=== PATIENT | female | born 1995 | race Caucasian/White ===

== ENCOUNTER 2019-09-30 22:32 | Observation (INO) | payer MEDICAID, SELFPAY ==
[2019-09-30 19:50] VITALS: BP 108/65; PULSE 75; RESP 18; TEMP 36.7
[2019-09-30 20:05] VITALS: BMI 20.9
[2019-09-30 20:59] VITALS: BP 0/0
[2019-09-30 21:00] VITALS: BP 103/58; PULSE 63
[2019-09-30 22:02] LABS: Glucose Urine UA Norm (Normal); Protein Urine 2+ (Negative); Urine Color Yellow (Yellow); pH Urine 6.5 (5-7)
[2019-09-30 22:03] LABS: Bilirubin Urine Neg (NEGATIVE); Blood Urine 2+ (Negative); Ketones Urine Negative (Negative); Leukocyte Esterase Urine 1+ (Negative); Nitrate Urine Negative (Negative); Urobilinogen Urine Norm (Negative)
[2019-09-30 22:04] LABS: Add Urine Culture? No; Bacteria Urine 2+; Squamous Epithelial Cell Urine 15-25 (0-5); WBC Urine 25-40 /hpf (0-5)
[2019-09-30 22:48] VITALS: RESP 18; TEMP 36.6
[2019-09-30 23:03] VITALS: BP 108/67; PULSE 66
[2019-09-30] MEDS: amoxicillin 500 mg Capsule 1000 MG PO (23:10)
[2019-09-30] MEDS: sodium chloride 0.9% 1,000 ML 100 ML IV (23:43)
[2019-10-01] VITALS (13 sets, daily range): BP systolic 0–104; BP diastolic 0–70; PULSE 71–102; RESP 16; TEMP 36.7
--- NOTE | 2019-10-01 07:20 | PM.SDS ---
Short Stay Summary Providers Date of Admit/Discharge: 10/01/19 Attending Provider: Venkata Knight MD Chief Complaint: OB TRIAGE HPI History of Present Illness Ara Guzman is a 23 year old female who began having contractions yesterday afternoon. They are moderately severe and she came to [facility] labor delivery for evaluation. Upon evaluation she was jennifer every 1-1/2 to 2 minutes and was 1 cm dilated but still very thick and high. Her urine was checked and she was found to have a urinary tract infection. After observation for a while she was found to continue to be jennifer with significant discomfort. As she lives more than an hour away a decision was made to remain in the hospital overnight for observation stay. Review of Systems General: Reports: 10 or more systems reviewed and unremarkable except in HPI and below : Reports: urinary frequency, absence of menstruation (She is .) and pelvic pain; Denies: difficulty urinating or vaginal odor Musc: Reports: back pain (Low back pain.) Home Meds/Allergies Home Medications and Allergies Home Medications Medication Instructions Recorded Confirmed Type tab PO DAILY 09/30/19 History Allergies Allergy/AdvReac Type Severity Reaction Status Date / Time erythromycin base Allergy ALGY-Rash Verified 09/30/19 21:08 PFSH Acute PFSH: Statuses (acute, chronic, etc) shown below reflect problem list status as previously entered and may not be historically accurate Family History Grandfather Family history of heart attack Grandmother Family history of heart attack Social History (Updated 09/30/19 @ 21:35 by Uma Godwin RN) Smoking and tobacco status: never smoked Second hand smoke exposure: No Smoking risk assessment/counseling performed?: No Alcohol intake: never Desire information about alcohol rehabilitation?: No Counseling given: No Substance/Drug Use: never Desire information about substance/drug rehabilitation?: No Counseling given: No Adopted: No Caregiver/support person: Yes Lives independently: Yes Household members: spouse and children Housing: House Marital status: Single Number of children: 1 Female Reporductive History: : 2 Vitals/I&O/Wt Last Vital Signs Temp 98.0 F 10/01/19 00:50 Pulse 80 10/01/19 06:59 Resp 16 10/01/19 00:50 BP 104/70 10/01/19 06:59 Weight last 48 hrs Weight 57.153 kg Physical Exam Const: COMMON NORMALS: no apparent distress and oriented x3 Chest: COMMONS NORMALS: inspection of chest normal Resp: COMMON NORMALS: normal respiratory effort GI: COMMON NORMALS: normal to inspection, nondistended, normoactive bowel sounds and soft to palpation; negative for non-tender (Mild suprapubic tenderness.) PALPATION: Yes soft : COMMON NORMALS: Yes no CVA tenderness BLADDER/KIDNEY EXAM: Yes no CVA tenderness MANUAL OB EXAM: dilated 1 cm, effaced 25% and station high (Approximately -3) Back/Pelvis: COMMON NORMALS: no CVA tenderness Neuro: COMMON NORMALS: oriented x3 and no sensory deficits noted Psych: COMMON NORMALS: mental status grossly normal Hospital Course Hospital Course: Patient has done well overnight. With intravenous fluids and 1 dose of amoxicillin the contractions have spaced out. She has made no cervical change and is felt to be stable to be discharged home. Diagnoses at Discharge Discharge Diagnosis (1) Urinary tract infection affecting care of mother in third trimester, antepartum: Status: Acute (2) uterine contractions: Status: Acute Problem details: Improved with hydration. Discharge Plan Discharge Patient Disposition: Home, Self-Care Condition: Stable Prescriptions: Continued 28-800 mg-mcg Tablet PO DAILY RF: 0 Discharge Orders: Discharge Order (Routine); Ordered 10/01/19 Ordered By: Venkata Knight Discharge Diet: Usual diet Discharge Activity: Resume usual activity Patient Instructions: Vitamins (By mouth), Amoxicillin (By mouth), OB Undelivered Discharge Attestations Medical Necessity Statement*: Patient lives more than an hour away and was jennifer regularly. She required observation stay overnight to ensure that she was not in active labor at 36-1/2 weeks gestation. As her contractions have spaced out she is felt to be stable to be discharged home this morning. Time Spent in Patient Care*: greater than 30 min Quality Metrics Clinical Quality Measures: During this hospital stay, did patient experience: None Coding Level of Care Code Acute Deputy General Counsel for Stacie Villarreal Diagnoses Urinary tract infection affecting care of mother in third trimester, antepartum O23.43 uterine contractions O47.9
== END 2019-10-01 07:35 | disposition home or self-care (01) ==
LOC: OBGYN 10-01 07:07 → OPOB 10-03 16:35
PROVIDERS: Admitting Provider Family Medicine; PCP Family Medicine; Visit Provider Family Medicine
DX: O23.43 Unspecified infection of urinary tract in pregnancy, third trimester (principal); O47.9 False labor, unspecified; Z3A.36 36 weeks gestation of pregnancy
CPT/HCPCS: 12345; 59025; 81001; 99211; G0378; J7030

== ENCOUNTER 2019-10-15 15:20 | Inpatient (IN) | payer MEDICAID, SELFPAY ==
[2019-10-15] VITALS (60 sets, daily range): BP systolic 0–128; BP diastolic 0–76; PULSE 67–96; RESP 16–18; TEMP 36.4–37.1; O2SAT 94–100; BMI 21.8
[2019-10-15] MEDS: miSOPROStol 100 mcg tablet 25 MCG VAGINAL (15:59)
[2019-10-15 16:29] LABS: Basophils % 0.4 %; Eosinophils # 0.1 10^3/uL (0.0-0.8); Eosinophils % 0.5 %; Hematocrit 35.7 % (37.0-47.0); Hemoglobin 11.3 g/dL (11.5-15.3); Lymphocytes # 1.7 10^3/uL (0.8-4.8); Lymphocytes % 15.9 %; Mean Corpuscular HGB Conc 31.7 g/dL (30.0-36.0); Mean Corpuscular Hemoglobin 28.3 pg (28.0-34.0); Mean Corpuscular Volume 89.5 fL (81-99); Mean Platelet Volume 10.5 fL (7.4-10.4); Monocytes # 0.5 10^3/uL (0.2-0.9); Monocytes % 5.1 %; Neutrophils # 8.1 10^3/uL (1.8-7.7); Neutrophils % 77.4 %; Nucleated Red Blood Cells % 0 %; Platelet Count 318 10^3/cmm (130-400); Red Blood Count 3.99 10^6/uL (4.1-5.3); Red Cell Distribution Width 12.5 % (12.1-15.1); White Blood Count 10.5 10^3/uL (4.0-10.0)
--- NOTE | 2019-10-15 17:55 | PC.NURSE ---
PT UP TO WALK FOR 1 HOUR INSTRUCTIONS GIVEN. PT VOICES UNDERSTANDS.
[2019-10-15] MEDS: dextrose 5%-lactated ringers 1,000 ML 125 ML IV (18:39)
[2019-10-15] MEDS: lactated ringers 1,000 ML 999 ML IV (18:58)
--- NOTE | 2019-10-15 19:27 | ANES.PREANES ---
Pre-Anesthetic Assessment Pre-Anesthetic Assessment: Height/Weight: Height 1.65 m Weight 59.552 kg Temp Pulse Resp BP Pulse Ox 97.6 F 75 18 104/63 94 10/15/19 15:33 10/15/19 19:25 10/15/19 15:33 10/15/19 19:25 10/15/19 19:11 Preop Diagnosis: labor pain Proposed Procedure: labor epidural Familial anesthetic complications: denies Was Beta Speedy taken within 24 hours: N/A Social: Social History: No tobacco Exam: Pre-Anes Outpt Exam: alert, oriented x 3 and clear to auscultation bilaterally Airway: Submandibular: WNL Cervical ROM: WNL MP: 1 History/ROS: No significant history except as noted Pulmonary: Pulmonary: None reported CV/HEM: CV/HEM: None reported : : None reported Hepatic: Hepatic: None reported GI: GI: GERD Metabolic: Metabolic: None reported Musc/skel: Musc/skel: None reported Neuropsych: Neuropsych: None reported Anesthetic Plan: ASA status: II Anesthesia: Regional (specify below) Other: epidural Risk of > 500 ml blood loss (7ml/kg in children): No Meds/Allergies Current Medications: Current Medications Generic Name Dose Route Start Last Admin Trade Name Freq PRN Reason Stop Dose Admin Dextrose/Lactated Ringer's 1,000 mls @ 125 m ls/hr 10/15/19 15:45 10/15/19 18:39 Dextrose 5%-Lact ated Ringers IV 125 mls/hr .Q8H KENDY Administration Lactated Ringer's 1,000 mls @ 999 m ls/hr 10/15/19 18:37 10/15/19 18:58 Lactated Ringers IV 999 mls/hr .Q1H1M PRN Administration ANESTHESIA Ropivacaine 200 mg in 100 mls @ 6 mls/hr 10/15/19 18:45 10/15/19 19:00 Naropin Premix EPIDURAL 6 mls/hr .[id number] KENDY Administration Misoprostol 25 mcg 10/15/19 16:00 10/15/19 15:59 Cytotec VAGINAL 10/17/19 16:01 25 mcg ONCE KENDY Administration PFSH Anesthesia PFSH: Social History (Updated 09/30/19 @ 21:35 by Uma Godwin RN) Smoking and tobacco status: never smoked Second hand smoke exposure: No Smoking risk assessment/counseling performed?: No Alcohol intake: never Desire information about alcohol rehabilitation?: No Counseling given: No Desire information about substance/drug rehabilitation?: No Counseling given: No Adopted: No Caregiver/support person: Yes Lives independently: Yes Household members: spouse and children Housing: House Marital status: Single Number of children: 1 Female Reproductive History: : 2 Data Anesthesia CBC & Chem 7: 10/15/19 16:05 Other Labs: Laboratory Results - last 48 hr 10/15/19 16:05 WBC 10.5 H RBC 3.99 L Hgb 11.3 L Hct 35.7 L MCV 89.5 MCH 28.3 MCHC 31.7 RDW 12.5 Plt Count 318 MPV 10.5 H Neut % (Auto) 77.4 Lymph % (Auto) 15.9 [place] % (Auto) 5.1 Eos % (Auto) 0.5 Baso % (Auto) 0.4 Neut # (Auto) 8.1 H Lymph # (Auto) 1.7 [place] # (Auto) 0.5 Eos # (Auto) 0.1 Baso # (Auto) 0.0 Nucleated RBC % (auto) 0 Nucleated RBCs # 0.0 Cardiac Studies: No Data to Display
--- NOTE | 2019-10-15 19:30 | ANES.PROC ---
Anesthesia Procedures Procedure/Date: 10/15/19 Epidural: Time Out Performed: Yes Consents Signed: Procedure Consent Consent: requested by attending/covering physician, from patient, risks and benefits reviewed and patient agrees to proceed Lumbar Level: L3-L4 Epidural position: sitting Epidural procedure: sterile prep of area, 1% lidocaine to numb the area (3 cc skin wheel), 18 g needle, negative for paresthesia passed, neg for paresthesia, test dose given (no adverse response), 0.2% Ropivacaine bolus ml, placed PCEA, no systemic response, sterile dressing applied and 0.2% Ropiavacaine @ mls/hr (13 mls/hr) Additional Comments: patient states pain with contractions improved. VSS see OBIX system
[2019-10-15] MEDS: oxytocin 30 UNIT/500 ML BAG 600 UNIT IV (23:05)
--- NOTE | 2019-10-15 23:25 | PM.DELIVERY ---
 Delivery Note: Date of delivery: 10/17/19 Pre-delivery diagnoses: Term . Mom admitted for misoprostel cervical ripening for induction purposes. Post-delivery diagnoses: Status post spontaneous vaginal delivery. Procedure: Spontaneous vaginal delivery with epidural anesthesia. Anesthesia: epidural Delivering Physician: Eugene Estimated blood loss (mL): 113 Pre-Delivery Course: This patient was followed by this physician throughout her entire course. There were no major problems throughout her course. Maternal blood type was A+ with antibody screen negative. Hepatitis B, hepatitis C, RPR and HIV were negative. Rubella was immune and group B strep was negative. The patient was seen on the day of delivery in the office. At that time she was approximately 2 to 3 cm dilated and very uncomfortable. As bad weather was coming on and the patient and spouse lived several miles away a decision was made to admit the patient to the hospital and proceed with cervical ripening. Delivery: This 23-year-old 2 now para 2 female patient was given misoprostol 25 mcg x 1 dose and very shortly after that went into active labor. She underwent artificial rupture membranes at around 6:30 PM with a large amount of clear fluid obtained. The patient was given epidural anesthesia shortly after that and dilated to complete cervical dilatation. She was allowed to labor down and began pushing and was able to deliver by spontaneous vaginal livery healthy, viable female infant at 2303. The mouth and nose were suctioned with bulb syringe at the perineum. The infant was then completely delivered. There was no nuchal cord and the cord did have 3 blood vessels. Upon delivery and suctioning the was placed on mother's abdomen where after approximately 1 minute the umbilical cord was clamped and was cut by the 's father. The infant required further suctioning and was in the eventually brought to the warmer where approximately 10 mL of clear fluid was deleed from the . did cried lustily at with Apgars of 8 and 9 at 1 and 5 minutes respectively. The weighed 7 pounds 0 ounces. The placenta delivered spontaneously at 2305 and appeared to be intact. The patient is not bleeding heavily and sweep of the vaginal vault did not find any clots or active bleeding. There was no episiotomy and no lacerations. Post-Delivery Status: Patient appears to be doing very well and will be followed for routine postdelivery course. A&P Assessment and plan (1) Normal spontaneous vaginal delivery: Routine care. We will adjust orders as necessary. Status: Acute Code(s): O80 - Encounter for full-term uncomplicated delivery Coding Level of Care Code Acute Telecommunications Professional for Chg Fwd Diagnoses Normal spontaneous vaginal delivery O80
[2019-10-16] VITALS (15 sets, daily range): BP systolic 93–113; BP diastolic 54–69; PULSE 65–100; RESP 15–17; TEMP 36.6–36.9; O2SAT 97–99
--- NOTE | 2019-10-16 07:20 | P.PN_ITS ---
STRATEGIC ACCOUNT MANAGER Subjective Subjective: Interval history: Patient has done well overnight with just mild lochia and no significant cramps. She is ambulating well and tolerating a regular diet. Labor: Station: +2 Amniotic Membrane Status: Leaking Monitor Mode: External Contraction Pattern: Regular Status: Category l Vitals/I&O/Wt Last Vital Signs Temp 98.2 F 10/16/19 04:00 Pulse 81 10/16/19 05:00 Resp 15 10/16/19 05:00 BP 99/58 10/16/19 05:00 Pulse Ox 98 10/16/19 05:00 10/15/19 10/16/19 10/16/19 22:59 06:59 14:59 Output Total 300 / 300 100 / 400 Balance -300 / -300 -100 / -400 Weight last 48 hrs Weight 59.552 kg Physical Exam Const: COMMON NORMALS: no apparent distress, average body habitus, oriented x3 and well nourished GENERAL APPEARANCE: cooperative and comfortable NUTRITIONAL APPEARANCE: thin ORIENTATION/CONSCIOUSNESS: Yes awake Chest: CHEST: Yes symmetrical chest wall rise Resp: COMMON NORMALS: normal respiratory effort, no use of accessory muscles and clear to auscultation bilaterally AUSCULTATION: clear to auscultation bilaterally Cardio: COMMON NORMALS: regular rate, regular rhythm and no murmurs RATE: regular rate RHYTHM: regular rhythm GI: COMMON NORMALS: normal to inspection, nondistended, normoactive bowel sounds, soft to palpation and non-tender (Fundus is firm.) PALPATION: Yes soft Extremity: GENERAL: Yes normal exam except as noted Neuro: COMMON NORMALS: oriented x3, CN's II-XII intact bilaterally and no focal motor deficits Psych: COMMON NORMALS: mental status grossly normal Urinary Catheter Management^: Milligan: Cath Placed During This Visit: no Data : 10/16/19 11:19 A&P Assessment and plan (1) Normal spontaneous vaginal delivery: We will continue routine care. Plan probable discharge in the morning. Status: Acute Code(s): O80 - Encounter for full-term uncomplicated delivery Attestations Medical Necessity Statement*: Patient delivered late the night prior to this dictation and requires 1 more midnight hospital stay for routine care. Coding Level of Care Code Acute Petroleum Engineering Teacher for [facility] Fwjoseluis Exam Problem Focused Diagnoses Normal spontaneous vaginal delivery O80
[2019-10-16] MEDS: docusate sodium 100 mg Capsule PO (10:10)
[2019-10-16] MEDS: prenatal vitamin Capsule 1 CAP PO (10:10)
[2019-10-16 11:25] LABS: Hematocrit 33.4 % (37.0-47.0); Hemoglobin 10.5 g/dL (11.5-15.3); Mean Corpuscular HGB Conc 31.4 g/dL (30.0-36.0); Mean Corpuscular Hemoglobin 27.1 pg (28.0-34.0); Mean Corpuscular Volume 86.3 fL (81-99); Mean Platelet Volume 10.3 fL (7.4-10.4); Platelet Count 267 10^3/cmm (130-400); Red Blood Count 3.87 10^6/uL (4.1-5.3); Red Cell Distribution Width 12.5 % (12.1-15.1)
--- NOTE | 2019-10-17 08:42 | P.DS_ITS ---
Discharge Providers CONFIGURATION TECHNICIAN Date of Admission: 10/15/19 15:20 Date of Discharge: 10/17/19 Attending Provider at Admission: Venkata Knight MD Attending Provider at Discharge: Venkata Knight MD Primary Care Provider: Venkata Knight MD Diagnoses at Discharge Discharge Diagnosis (1) Normal spontaneous vaginal delivery: Status: Acute Problem details: Patient was admitted for cervical ripening and induction for term and history of rapid labor. Reason for Visit Reason for Visit: Reason For Visit: INDUCTION Information Peripartum Data: Delivery Method: Vaginal Episiotomy description: None Physical Exam Narrative: EXAM NARRATIVE: Patient has done well postdelivery. She has had just mild lochia with no significant cramps or clots. She is feeding the infant with formula. She is ambulating well and tolerating regular diet and is felt to be stable for discharge home. Const: COMMON NORMALS: no apparent distress and healthy appearing Chest: COMMONS NORMALS: inspection of chest normal Resp: COMMON NORMALS: normal respiratory effort, no retractions, no use of accessory muscles and clear to auscultation bilaterally AUSCULTATION: clear to auscultation bilaterally Cardio: COMMON NORMALS: regular rate and regular rhythm RATE: regular rate RHYTHM: regular rhythm GI: COMMON NORMALS: normal to inspection, nondistended, normoactive bowel sounds, soft to palpation (Fundus is firm.) and non-tender PALPATION: Yes soft (Fundus is firm.) Extremity: COMMON NORMALS: normal to inspection, full ROM and no pedal edema Urinary Catheter Management^: Milligan: Cath Placed During This Visit: no Discharge Data Data Completed and Pending: Labs from last 24 hours 10/16/19 11:19 WBC 12.0 H RBC 3.87 L Hgb 10.5 L Hct 33.4 L MCV 86.3 MCH 27.1 L MCHC 31.4 RDW 12.5 Plt Count 267 MPV 10.3 Vitals: Last Vital Signs Temp 97.9 F 10/16/19 10:13 Pulse 72 10/16/19 13:22 Resp 16 10/16/19 13:22 BP 109/64 10/16/19 13:22 Pulse Ox 97 10/16/19 10:13 Discharge Plan Discharge Patient Disposition: Home, Self-Care Condition: Stable Prescriptions: New docusate sodium 100 mg Capsule 100 mg PO BID Qty: 60 RF: 1 ibuprofen 800 mg Tablet 800 mg PO TID Qty: 90 RF: 2 Continued 28-800 mg-mcg Tablet 1 tab PO DAILY RF: 0 Discharge Orders: Discharge Order (Routine); Ordered 10/17/19 Ordered By: Venkata Knight Referrals: Venkata Knight MD [Primary Care Provider] - Discharge Diet: Usual diet Discharge Activity: Resume usual activity Discharge Attestations CONFIGURATION TECHNICIAN Time Spent in Discharge Care*: less than 30 min Specific Discharge Activities: Specific discharge activities: educating patient, documenting/other paperwork and evaluating patient/reviewing data Status at Discharge: Cognitive status at discharge: cognitively intact , Behavioral status at discharge: cooperative and independent in ADL's , Functional status at discharge: independent ambulation Overall status at discharge: patient is back to baseline Coding Level of Care Code Established Pt Acute Rabies Inspector for Chg Fwd Patient Type Established Exam Problem Focused Diagnoses Normal spontaneous vaginal delivery O80
[2019-10-17] MEDS: docusate sodium 100 mg Capsule PO (09:17)
[2019-10-17] MEDS: prenatal vitamin Capsule 1 CAP PO (09:17)
[2019-10-17 10:03] VITALS: BP 101/62; PULSE 74; RESP 18; TEMP 36.7; O2SAT 99
[2019-10-17 10:04] VITALS: BP 101/62; PULSE 74; RESP 18; TEMP 36.7; O2SAT 99
[2019-10-17 10:20] VITALS: BP 101/62; PULSE 74; RESP 18; TEMP 36.7; O2SAT 99
== END 2019-10-17 10:32 | disposition home or self-care (01) | DRG 807 ==
PROVIDERS: Admitting Provider Family Medicine; PCP Family Medicine; Visit Provider Family Medicine
DX: O80 Encounter for full-term uncomplicated delivery (principal); Z37.0 Single live birth; Z3A.40 40 weeks gestation of pregnancy
CPT/HCPCS: 12345; 36415; 51702; 59025; 59409; 85025; 85027; 99211; J2795

== ENCOUNTER 2021-04-30 16:37 | Inpatient (IN) | payer MEDICAID, SELFPAY ==
[2021-04-30] VITALS (55 sets, daily range): BP systolic 89–133; BP diastolic 47–81; PULSE 68–182; RESP 16–18; TEMP 36.9–37.3; O2SAT 82–100; BMI 23.0
[2021-04-30] MEDS: lactated ringers 1,000 ML 999 ML IV ×2 (16:15→17:41)
[2021-04-30 16:29] LABS: Basophils # 0.1 10^3/uL (0.0-0.1); Basophils % 0.5 %; Eosinophils % 0.3 %; Hematocrit 31.4 % (37.0-47.0); Hemoglobin 9.8 g/dL (11.5-15.3); Lymphocytes # 1.5 10^3/uL (0.8-4.8); Lymphocytes % 11.2 %; Mean Corpuscular HGB Conc 31.2 g/dL (30.0-36.0); Mean Corpuscular Hemoglobin 26.1 pg (28.0-34.0); Mean Corpuscular Volume 83.7 fl (81-99); Mean Platelet Volume 11.1 fL (7.4-10.4); Monocytes # 1.1 10^3/uL (0.2-0.9); Monocytes % 7.9 %; Neutrophils # 10.68 10^3/uL (1.8-7.7); Neutrophils % 79.4 %; Nucleated Red Blood Cells % 0 %; Platelet Count 266 10^3/cmm (130-400); Red Blood Count 3.75 10^6/uL (4.1-5.3); Red Cell Distribution Width 13.9 % (12.1-15.1); White Blood Count 13.5 10^3/uL (4.0-10.0)
--- NOTE | 2021-04-30 17:40 | PM.OPHPUD ---
Labor & Delivery H&P Update Date of Procedure: April 30, 2021 Date H&P Performed: 04/28/21 H&P update information: I have reviewed H&P completed within last 30 days, I have examined patient prior to procedure and Changes to prior documentation as noted here (Patient began jennifer harder earlier this morningAnd came to the OB department in active labor at 6 cm dilated.) Admission Diagnosis: Term in labor. Preop diagnosis: labor pain Primary indication for procedure: Term in active labor. Planned procedure: With epidural anesthesia. Other information: Monday and is negative today.
--- NOTE | 2021-04-30 17:46 | ANES.PREANE2 ---
Pre-Anesthetic Assessment Pre-Anesthetic Assessment: Height/Weight: Height 1.63 m Weight 60.781 kg Temp Pulse BP Pulse Ox 98.6 F 75 114/60 100 04/30/21 15:12 04/30/21 17:44 04/30/21 17:44 04/30/21 17:43 Preop Diagnosis: labor pain Was Beta Speedy taken within 24 hours: N/A Was Clonidine taken within 24 hours: N/A Social: Social History: No alcohol and No tobacco Exam: Pre-Anes Outpt Exam: alert, oriented x 3, clear to auscultation bilaterally and regular rate & rhythm Airway: Submandibular: WNL Cervical ROM: WNL MP: 2 Dentition: Full History/ROS: No significant history except as noted Anesthetic Plan: ASA status: 2 Anesthesia: Regional (specify below) (Labor epidural) Risk of > 500 ml blood loss (7ml/kg in children): No Meds/Allergies Current Medications: Current Medications Generic Name Dose Route Start Last Admin Trade Name Freq PRN Reason Stop Dose Admin Lactated Ringer's 1,000 mls @ 999 m ls/hr 04/30/21 15:27 04/30/21 17:41 Lactated Ringers IV 999 mls/hr .Q1H1M PRN Administration Per L&D Rescitati on Protocol Ropivacaine 200 mg in 100 mls @ 13 mls/hr 04/30/21 15:30 04/30/21 17:43 Naropin Premix EPIDURAL 13 mls/hr .Q7H42M KENDY Administration Lactated Ringer's 1,000 mls @ 999 m ls/hr 04/30/21 15:29 04/30/21 17:30 Lactated Ringers IV Infused .Q1H1M PRN Infusion See label comment s PFSH Anesthesia PFSH: Family History Grandfather Family history of heart attack Grandmother Family history of heart attack Social History (Updated 09/30/19 @ 21:35 by Uma Godwin RN) Smoking and tobacco status: never smoked Second hand smoke exposure: No Smoking risk assessment/counseling performed?: No Alcohol intake: never Desire information about alcohol rehabilitation?: No Counseling given: No Desire information about substance/drug rehabilitation?: No Counseling given: No Adopted: No Caregiver/support person: Yes Lives independently: Yes Household members: spouse and children Housing: House Marital status: Single Number of children: 1 Female Reproductive History: Date of last menstrual period: 07/19/20 : 3 Data Anesthesia CBC & Chem 7: 04/30/21 16:00 Other Labs: Laboratory Results - last 48 hr 04/30/21 16:00 WBC 13.5 H RBC 3.75 L Hgb 9.8 L Hct 31.4 L MCV 83.7 MCH 26.1 L MCHC 31.2 RDW 13.9 Plt Count 266 MPV 11.1 H Neut % (Auto) 79.4 Lymph % (Auto) 11.2 [place] % (Auto) 7.9 Eos % (Auto) 0.3 Baso % (Auto) 0.5 Neut # (Auto) 10.68 H Lymph # (Auto) 1.5 [place] # (Auto) 1.1 H Eos # (Auto) 0.0 Baso # (Auto) 0.1 Nucleated RBC % (auto) 0 Nucleated RBCs # 0.0 Cardiac Studies: No Data to Display
--- NOTE | 2021-04-30 17:46 | ANES.PROC ---
Anesthesia Procedures Procedure/Date: 04/30/21 Epidural: Time Out Performed: Yes Consents Signed: Procedure Consent Consent: requested by attending/covering physician, from patient, risks and benefits reviewed and patient agrees to proceed Lumbar Level: L3-L4 Epidural position: sitting Epidural procedure: sterile prep of area, 1% lidocaine to numb the area, 18 g needle, neg for paresthesia, test dose given, 1.5% xylocaine 1:200k epi, placed PCEA, no systemic response, sterile dressing applied and 0.2% Ropiavacaine @ mls/hr (13) Additional Comments: SUN at 4cm, cath at 9cm.
--- NOTE | 2021-04-30 17:58 | PC.NURSE ---
Patient's Covid is negative.
[2021-05-01] VITALS (29 sets, daily range): BP systolic 101–140; BP diastolic 53–93; PULSE 66–218; RESP 18; TEMP 36.6–37.1
--- NOTE | 2021-05-01 00:45 | PM.DELIVERY ---
Delivery Note: Date of delivery: May 01, 2021 this 25-year-old 3 now para 3 female with an EDC of 05/04/2021 had spontaneous onset of labor the morning prior to the morning of delivery. She was 39 weeks and 3 days gestation. Contractions started early in the morning and by early afternoon she arrived [facility] OB department at 6 cm dilated. Her contractions at that time were anywhere from 2 to 8 minutes apart. She was given epidural anesthesia after a fluid bolus and that did relax her. She dilated pretty quickly to 8 cm dilation but at that time, she seemed to stall out. She underwent artificial rupture membranes twice with close clear fluid obtained both times. Infant tolerated labor well she did finally dilated to complete cervical dilatation and delivered by spontaneous vaginal livery healthy, viable male infant at 00 30 a.m. Upon delivery of the infant's head the mouth and nose were suctioned followed by delivery of the right shoulder anteriorly in the left shoulder posteriorly. The infant was suctioned again prior to placing the on mother's abdomen. After approximately 1 minute, the umbilical cord was clamped and then cut by the infant's father. There was no nuchal cord and the cord had 3 blood vessels. The infant weighed 7 pounds 5 ounces and had Apgars of 8 and 9 at 1 and 5 minutes respectively. Evaluation of the vaginal vault and perineum demonstrated some mild bruising at the perineum but no lacerations and no repair necessary. The uterus is in good position with no tears or lacerations of the cervix noted. The vaginal vault was swept with fundal massage removing clots. There is good hemostasis at this time. Estimated blood loss approximately 134 mL. Pre-Delivery Course: This patient was followed by this physician throughout her course. There were no major problems or concerns throughout the course. Maternal blood type was A+ with antibody screen negative. Hepatitis B, hepatitis C, RPR and HIV were negative. Rubella was immune. Group B strep and Covid testing were both negative. She went into labor on her own early yesterday morning. Delivery: Spontaneous vaginal delivery. Post-Delivery Status: Patient appears to be doing well at this time and will be followed for routine care. A&P Assessment and plan (1) Normal spontaneous vaginal delivery: Patient did well with the labor and delivery process. She will be followed for routine care. We will adjust treatment as necessary. Status: Acute Coding Level of Care Code Acute Flag Maker for Chg Fwd Diagnoses Normal spontaneous vaginal delivery O80
[2021-05-01] MEDS: oxytocin 30 UNIT/500 ML BAG 600 UNIT IV (00:51)
[2021-05-01] MEDS: HYDROcodone-acetaminophen 5-325 mg Tablet PO (03:43)
[2021-05-01] MEDS: ibuprofen 800 mg tablet PO ×3 (08:20→21:12)
[2021-05-01] MEDS: prenatal vitamin Capsule 1 CAP PO (08:20)
[2021-05-01] MEDS: docusate sodium 100 mg Capsule PO ×2 (08:20→18:05)
--- NOTE | 2021-05-01 08:21 | ANE.PACU2 ---
Inpatient post-anesthesia follow up: Airway intact: Yes Vital signs: Temperature 98.4 F Pulse Rate 81 Respiratory Rate 18 Blood Pressure 101/56 Pulse Oximetry 100 Oxygen Delivery Me thod Room Air Oxygen Flow Rate Fraction of Inspir ed Oxygen Hydration adequate: Yes Nausea and vomiting: No Pain level: 2 Mental status: Baseline
[2021-05-01 14:43] LABS: Hematocrit 30.1 % (37.0-47.0); Hemoglobin 9.3 g/dL (11.5-15.3); Mean Corpuscular HGB Conc 30.9 g/dL (30.0-36.0); Mean Corpuscular Hemoglobin 26.3 pg (28.0-34.0); Platelet Count 246 10^3/cmm (130-400); Red Blood Count 3.54 10^6/uL (4.1-5.3); Red Cell Distribution Width 14.2 % (12.1-15.1); White Blood Count 11.7 10^3/uL (4.0-10.0)
[2021-05-02 03:45] VITALS: RESP 18
[2021-05-02 03:48] VITALS: BP 107/66; PULSE 80; TEMP 36.4
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
[2021-05-02] MEDS: prenatal vitamin Capsule 1 CAP PO (09:02)
[2021-05-02] MEDS: docusate sodium 100 mg Capsule PO (09:02)
[2021-05-02] MEDS: ibuprofen 800 mg tablet PO (09:02)
[2021-05-02 09:38] VITALS: TEMP 36.8
[2021-05-02 09:39] VITALS: BP 99/58; PULSE 71; RESP 18; TEMP 36.8
[2021-05-02 10:33] VITALS: BP 99/58; PULSE 71; RESP 18; TEMP 36.8
== END 2021-05-02 10:15 | disposition home or self-care (01) | DRG 807 ==
LOC: OPOB 16:37 → OBGYN 16:37
PROVIDERS: Admitting Provider Family Medicine; PCP Family Medicine; Visit Provider Family Medicine
DX: O80 Encounter for full-term uncomplicated delivery (principal); Z37.0 Single live birth; Z3A.39 39 weeks gestation of pregnancy
CPT/HCPCS: 36415; 51702; 59025; 59409; 85025; 85027; 99211; J2795

== ENCOUNTER 2023-09-22 14:00 | Emergency (ER) | payer MEDICAID, SELFPAY ==
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
[2023-09-22] MEDS: iohexol 350 mg/mL 500 mL Btl (per mL) IV (14:42)
[2023-09-22 14:47] LABS: Basophils # 0.1 10^3/uL (0.0-0.1); Basophils % 0.7 %; Eosinophils # 0.1 10^3/uL (0.0-0.8); Hematocrit 40.9 % (36-47); Lymphocytes # 1.4 10^3/uL (0.8-4.8); Lymphocytes % 12.9 %; Mean Corpuscular HGB Conc 32.3 g/dL (30-55); Mean Corpuscular Hemoglobin 28.9 pg (27-33); Mean Corpuscular Volume 89.7 fl (85-98); Mean Platelet Volume 10.2 fL (7.4-10.4); Monocytes # 0.6 10^3/uL (0.2-0.9); Monocytes % 5.6 %; Neutrophils # 8.36 10^3/uL (1.8-7.7); Neutrophils % 79.4 %; Nucleated Red Blood Cells % 0 %; Platelet Count 287 10^3/cmm (157-399); Red Blood Count 4.56 10^6/uL (3.85-5.65); Red Cell Distribution Width 11.9 % (12.1-15.1); White Blood Count 10.53 10^3/uL (3.29-11.43)
[2023-09-22 14:49] VITALS: BP 92/64; PULSE 64; O2SAT 98
[2023-09-22 15:04] LABS: Alanine Aminotransferase 14 U/L (0-33); Albumin Level 4.5 g/dL (3.5-5.2); Alkaline Phosphatase 94 U/L (35-105); Anion Gap 13.8 (5-19); Aspartate Amino Transferase 14 U/L (0-32); Blood Urea Nitrogen 14 mg/dL (6-20); Calcium 9.9 mg/dL (8.5-10.5); Carbon Dioxide 23 mmol/L (22-29); Chloride 106 mmol/L (98-107); Globulin 3.2 g/dL (1.3-4.6); Glomerular Filtration Rate 120.8 mL/min (90-130); Glucose 109 mg/dL (65-115); Osmolality Calculated 289 mOsm/kg (285-295); Potassium 3.8 mmol/L (3.5-5.1); Sodium 139 mmol/L (136-145); Total Bilirubin 0.2 mg/dL (0.15-1.2); Total Protein 7.7 g/dL (6.6-8.7)
[2023-09-22 15:30] VITALS: BP 98/59; PULSE 62; O2SAT 98
[2023-09-22 16:00] VITALS: BP 98/59; PULSE 66; O2SAT 97
[2023-09-22 16:30] VITALS: BP 101/65; PULSE 78; O2SAT 98
[2023-09-22] MEDS: cyclobenzaprine 10 mg Tablet 5 MG PO (16:31)
[2023-09-22] MEDS: HYDROcodone-acetaminophen 5-325 mg Tablet 1 TAB PO (16:31)
[2023-09-22 17:00] VITALS: BP 99/60; PULSE 73; O2SAT 99
== END 2023-09-22 17:22 | disposition home or self-care (01) ==
PROVIDERS: Emergency Provider Internal Medicine; PCP Family Medicine
DX: Z04.1 Encounter for examination and observation following transport accident (principal); T14.8XXA Other injury of unspecified body region, initial encounter; S30.1XXA Contusion of abdominal wall, initial encounter; V59.40XA Driver of pick-up truck or van injured in collision with unspecified motor vehicles in traffic accident, initial encounter
CPT/HCPCS: 36415; 70450; 71260; 72125; 74177; 80053; 85025; 99285; Q9967

== ENCOUNTER → 2024-04-24 10:30 | Outpatient (BNVA) | payer MEDICAID, SELFPAY | PROVIDERS: PCP Family Medicine; Visit Provider Nurse Practitioner Family | DX: R10.11 Right upper quadrant pain (principal) | CPT/HCPCS: 80053; 83690; 85025 ==

== ENCOUNTER 2024-04-26 06:15 | Outpatient (CLI) | payer MEDICAID, SELFPAY ==
--- NOTE | 2024-04-26 06:15 | USR_ITS ---
PROCEDURE INFORMATION: Exam: US Abdomen; Limited Exam date and time: 04/26/2024 6:24 AM Age: 28 years old Clinical indication: Abdominal pain; Localized; Right upper quadrant (ruq); Additional info: R10.11 - right upper quadrant pain TECHNIQUE: Imaging protocol: Real time ultrasound of the abdomen with image documentation. Limited exam focused on the region of clinical interest. COMPARISON: CT chest abdpel w/*[id number] 09/22/2023 2:37 PM FINDINGS: Liver: The liver is normal in size shape and echotexture. There is no evidence of intrahepatic biliary dilatation or a focal hepatic mass. Gallbladder: The gallbladder is unremarkable with no calcified stones visualized and no strandy inflammatory changes surrounding the gallbladder. Biliary ducts: The common bile duct is borderline enlarged measuring 6 mm. Pancreas: The visualized portions of the pancreas are unremarkable. Aorta: The abdominal aorta is unremarkable. Inferior vena cava: The inferior vena cava is unremarkable. Portal venous: Portal vein is patent with normal hepatopetal flow on Doppler. Other findings: Stable horseshoe kidney without suggestion of hydronephrosis. US/US gall bladder [id number] IMPRESSION: 1. No evidence of cholelithiasis or cholecystitis. 2. The common bile duct is borderline enlarged measuring 6 mm. 3. Stable horseshoe kidney without hydronephrosis.
== END 2024-04-26 06:18 | disposition home or self-care (01) ==
PROVIDERS: PCP Family Medicine; Visit Provider Nurse Practitioner Family
DX: Q63.1 Lobulated, fused and horseshoe kidney (principal); R10.11 Right upper quadrant pain
CPT/HCPCS: 76705

== ENCOUNTER → 2024-07-22 14:52 | Outpatient (BNVA) | payer MEDICAID, SELFPAY | PROVIDERS: PCP Family Medicine; Visit Provider Nurse Practitioner Family | DX: J02.9 Acute pharyngitis, unspecified (principal); R50.9 Fever, unspecified | CPT/HCPCS: 87070; 87400; 87426; 87880 ==

== ENCOUNTER → 2024-12-17 14:41 | Outpatient (BNVA) | payer MEDICAID, SELFPAY | PROVIDERS: PCP Nurse Practitioner Family; Visit Provider Nurse Practitioner Family | DX: L50.6 Contact urticaria (principal); L50.9 Urticaria, unspecified | CPT/HCPCS: 80053; 82785; 85025; 86003; 86008 ==

== ENCOUNTER → 2024-12-27 14:00 | Outpatient (BNVA) | payer MEDICAID, SELFPAY | PROVIDERS: PCP Nurse Practitioner Family; Visit Provider Nurse Practitioner Family | DX: L50.6 Contact urticaria (principal); L50.9 Urticaria, unspecified | CPT/HCPCS: 82785; 86001; 86003 ==

== ENCOUNTER 2025-07-28 03:24 | Emergency (ER) | payer MEDICAID, SELFPAY ==
[2025-07-28 03:33] VITALS: BP 106/79; PULSE 81; RESP 20; TEMP 36.9; O2SAT 100; BMI 21.4
[2025-07-28] MEDS: diphenhydrAMINE 50 mg/mL SDV 1mL IVP (03:49)
[2025-07-28] MEDS: methylPREDNISolone sod succ 125 mg/2 mL INJ IVP (03:50)
[2025-07-28 03:57] VITALS: BP 118/63; PULSE 88; O2SAT 100
--- NOTE | 2025-07-28 04:08 | ED_ITS ---
HPI - Allergic Reaction General: Chief complaint: Allergic Reaction Stated complaint: Face swollen, tingly throat Time Seen by Provider: 07/28/25 03:31 History of Present Illness: HPI narrative: Patient is a 29-year-old female who presents with acute onset of facial swelling, lip swelling, and tongue swelling. Symptoms began earlier today, with progressive worsening throughout the day. Patient reports she was doing cleaning in her house with new chemicals on Monday, which may be a potential trigger. She has taken Benadryl today in an attempt to self-treat: one tablet of at noon, one tablet at 4:00 PM, and two tablets at 8:00 PM, without significant improvement. Patient denies difficulty breathing but reports her tongue feels a little big. She also appears itchy with blotchy skin noted on examination, particularly on her right arm and neck. Patient denies any new food intake, tick bites, insect stings, or new medications. She did take two ibuprofen at 4:00 PM after symptoms had already started. Patient denies any previous similar episodes of angioedema. Related Data Previous Rx's ?Medication ?Instructions ?Recorded amoxicillin 500 mg-potassium 1 tab PO Q8H 7 days #21 t abs 04/11/25 clavulanate 125 mg tablet (Augmentin) cetirizine 10 mg capsule (Zyrtec) 10 mg PO DAILY PRN a llergy 07/28/25 symptoms #30 caps diphenhydramine HCl 25 mg capsule 25 mg PO Q6H #30 cap s 07/28/25 (Benadryl) methylprednisolone 4 mg tablets in See Rx Instructions PO .COMPLEX 07/28/25 a dose pack (Medrol (David)) #21 ea Allergies Allergy/AdvReac Type Severity Reaction Status Date / Time erythromycin base Allergy Mild ALGY-Rash Verified 07/22/24 14:20 lactose Allergy Unknown Verified 07/28/25 03:44 [facility] PFSH: Family History Grandfather Family history of heart attack Grandmother Family history of heart attack Social History Smoking and tobacco/nicotine status: never used tobacco/nicotine Second hand smoke exposure: No Alcohol intake: never Substance/Drug Use: never Adopted: No Caregiver/support person: Yes Lives independently: Yes Household members: spouse and children Housing: House Marital status: Single Number of children: 1 Physical Exam HENMT: FACE & SINUS: erythema (Mild) and edema (Significant symmetrical angioedema, periorbital, lips) bilaterally Neck/C-Spine: GENERAL: Yes trachea midline and No anterior neck swelling Chest: CHEST: Yes Symmetrical chest wall rise Resp: COMMON NORMALS: normal respiratory effort, No retractions and clear to auscultation bilaterally AUSCULTATION: clear to auscultation bilaterally Cardio: COMMON NORMALS: regular rate and regular rhythm RATE: regular rate and not tachycardic RHYTHM: regular rhythm GI: COMMON NORMALS: Soft to palpation PALPATION: Yes Soft to palpation Skin: NARRATIVE SKIN EXAM: Urticaria present, mainly on right forearm, chest, neck. Course Vital Signs: Vital signs: Vital Signs Temperature 98.5 F 07/28/25 03:33 Pulse Rate 88 07/28/25 03:57 Respiratory Rate 20 H 07/28/25 03:33 Blood Pressure 100/59 07/28/25 06:07 Pulse Oximetry 100 07/28/25 04:25 Oxygen Delivery Me thod Room Air 07/28/25 03:33 MDM - Allergic Reaction Medical Decision Making The patient is given Solu-Medrol, Benadryl, Pepcid IV, and IM epinephrine on arrival. Vital signs are normal at this point. On reexamination, vitals remained stable. She is resting comfortably. Eyelids are still swollen shut. She still has coalescing rash, although it is less red. No tongue edema. Airway is patent. She will be discharged on tapering dose of steroid, scheduled Benadryl, Zyrtec. No radiology studies performed this visit Discharge Plan Discharge Patient Disposition: Home Clinical Impression: Angioedema Qualifiers: Encounter type: initial encounter Qualified Code(s): T78.3XXA - Angioneurotic edema, initial encounter Condition: Stable Prescriptions: New methylprednisolone [Medrol (David)] 4 mg tablets,dose pack See Rx Instructions .ROUTE .COMPLEX Qty: 21 0RF Rx Instructions: orally per package directions diphenhydramine HCl [Benadryl] 25 mg capsule 25 mg PO Q6H Qty: 30 0RF Zyrtec 10 mg capsule 10 mg PO DAILY PRN (Reason: allergy symptoms) Qty: 30 0RF No Action amoxicillin-pot clavulanate [Augmentin] 500-125 mg tablet 1 tab PO Q8H 7 Days Qty: 21 0RF Discharge Orders: Discharge ED (Routine); Ordered 07/28/25 Ordered By: Oscar Odom Referrals: Keily Mota NP [Primary Care Provider, Family Practice] Patient Instructions: Allergies (ED), Angioedema (ED), Adverse Drug Reaction (ED), Pain Management, Patient Portal & Zayda Instructions Activity Restrictions/Additional Instructions: Take Benadryl, 1 capsule scheduled every 6 hours while awake for the first 48 hours. Zyrtec daily for 3 days. Steroid as directed. Avoid any potential irritants. Return for worsening swelling of the face or tongue despite treatment, tightening of the throat, worsening shortness of breath, other concerning symptoms. Call your doctor later this morning for follow-up appointment. Print Language: Tanzanian Coding Level of Care Code ED Industrial Maintenance Mechanic for Stacie Villarreal
[2025-07-28 04:25] VITALS: BP 112/68; O2SAT 100
[2025-07-28 06:07] VITALS: BP 100/59
[2025-07-28 06:08] VITALS: BP 100/59; PULSE 80; O2SAT 95
== END 2025-07-28 06:19 | disposition home or self-care (01) ==
PROVIDERS: Emergency Provider Emergency Medicine; PCP Nurse Practitioner Family
DX: T78.3XXA Angioneurotic edema, initial encounter (principal); X58.XXXA Exposure to other specified factors, initial encounter
CPT/HCPCS: 96372; 96374; 96375; 99284; 99291; J0169; J1200; J2919; J3490